=== PATIENT | male | born 1960 | race Caucasian/White ===

== ENCOUNTER 2017-01-03 17:43 | Emergency (ER) | payer OTHER, BC ==
[~2017-01-03] VITALS: Ht 175.3 cm; Wt 78.6 kg
[~2017-01-03 17:43] MED LIST: ADVAIR 250/501 DISK IH; DOXYCYCLINE HY100 MG PO; HYDROCHLOROTHIA25 MG PO; NASONEX17 GM BOTH NARES; PREDNISONE5 MG PO; SINGULAIR10 MG PO; TRICOR145 MG PO; ZETIA10 MG PO
[2017-01-03] MEDS ORDERED: NORCO 10/3251 TABLET PO (20:00)
[2017-01-03] MEDS ORDERED: MOTRIN800 MG PO (20:00)
[2017-01-03 20:32] VITALS: BP 135/88
== END 2017-01-03 20:32 | disposition home or self-care (01) ==
LOC: EME 17:43
PROC: 3E0234Z Introduction of Serum, Toxoid and Vaccine into Muscle, Percutaneous Approach (ICD-10-PCS; principal; 2017-01-03)
DX: S05.01XA Injury of conjunctiva and corneal abrasion without foreign body, right eye, initial encounter (principal); V40.0XXA Car driver injured in collision with pedestrian or animal in nontraffic accident, initial encounter; Y92.410 Unspecified street and highway as the place of occurrence of the external cause; Z23 Encounter for immunization; J45.909 Unspecified asthma, uncomplicated; I10 Essential (primary) hypertension; E78.5 Hyperlipidemia, unspecified; Z88.0 Allergy status to penicillin
CPT/HCPCS: 99281; 99284